=== PATIENT | female | born 1990 | race African-American/Black ===

== ENCOUNTER 2016-12-07 19:16 | Emergency (ER) | payer BC ==
--- NOTE | ~2016-12-07 | CR72 ---
[facility] A Service of [facility] & [facility] RADIOLOGY TEXT RESULTS PATIENT: KAITLYN MADISON LOCATION: CFTX : [birth year] UNIT #: [id number] AGE: [address]: BASILIO SEVILLA APRN SEX: F ORDER DR: [id number] [facility] [address] [place], [place] [address] [id number] E MR#: [id number] Acc #: [id number] NAME: KAITLYN MADISON : 1990 SEX: F STUDY DATE/TIME: 12/07/2016 20:09 UNIT: [facility] ROOM: STUDY DESCRIPTION: CR Chest Single View Portable Attending Physician: Basilio Sevilla Aprn Referring Physician: No Primary Care Physician Ordering Physician: Basilio Sevilla Aprn Primary Care Physician: No Primary Care Physician MEDICAL IMAGING REPORT This report is preliminary unless electronic signature is present EXAM Portable chest, 12/07/2016. HISTORY 26-year-old female with fever, cough, congestion since 12/06/2016. COMPARISON None FINDINGS Frontal chest demonstrates clear lungs. No pleural effusion or pneumothorax. Heart size and mediastinum are normal. Pulmonary vasculature normal. IMPRESSION No acute cardiopulmonary findings. Dictated by... Juwan Esquivel M.D. THIS IS AN ELECTRONICALLY VERIFIED REPORT Juwan Esquivel M.D. at 12/08/2016 6:48 PM DIMITRIS/ron TD: 12/08/2016 09:39 JOB #: [id number] MEDICAL IMAGING REPORT COPY
[2016-12-07 19:07] LABS: INFLUENZA A NEG (NEG); INFLUENZA B NEG (NEG)
[~2016-12-07 19:16] MED LIST: ATARAX PO; BACTRIM DS TABL1 TA1 PO; FLEXERIL10 MG PO; IBUPROFEN PO; KEFLEX500 MG PO; LOTRISONE CREAM45 GM TOP; NO MEDICATIONS; VOLTAREN75 MG PO
[2016-12-07 19:42] LABS: URINE APPEARANCE CLOUDY; URINE BILIRUBIN NEG (NEG); URINE BLOOD NEG (NEG); URINE COLOR YELLOW; URINE GLUCOSE NEG (NEG); URINE KETONE NEG (NEG); URINE LEUKOCYTE ESTERASE NEG (NEG); URINE NITRATE NEG (NEG); URINE PROTEIN NEG (NEG); URINE SPECIFIC GRAVITY 1.024 (1.003-1.035)
[2016-12-07 19:51] LABS: CULTURE INDICATED? NO
== END 2016-12-07 21:43 | disposition home or self-care (01) ==
LOC: CFTX 19:16
PROVIDERS: Nurse Practitioner Family
DX: J06.9 Acute upper respiratory infection, unspecified (principal); Z88.0 Allergy status to penicillin
CPT/HCPCS: 71010; 81003; 84703; 87804; 99283